=== PATIENT | female | born 1960 | race Caucasian/White ===

== ENCOUNTER 2023-08-09 04:09 | Day surgery (SDC) | payer OTHER ==
[2023-08-03 16:27] VITALS: BMI 26.3
[2023-08-09 08:51] VITALS: TEMP 97.8
[2023-08-09] MEDS ORDERED: LIDOCAINE VISCOUS 2% ORAL/TOP 15 ML UNIT-DOSE CUP ONE (09:59)
[2023-08-09 11:11] VITALS: RESP 18
[2023-08-09 11:14] VITALS: BP 135/66; PULSE 70
== END 2023-08-09 11:21 | disposition home or self-care (01) ==
LOC: JASU-ENDO 04:09
PROVIDERS: ATTEND Internal Medicine Gastroenterology
PROC: 0DJD8ZZ Inspection of Lower Intestinal Tract, Via Natural or Artificial Opening Endoscopic (ICD-10-PCS; principal; 2023-08-09 09:30)
DX: R10.9 Unspecified abdominal pain (principal); K63.89 Other specified diseases of intestine
CPT/HCPCS: 82962; 88305-TC; 88342-TC

== ENCOUNTER 2024-04-20 18:10 | Emergency (ER) | payer BC, OTHER ==
[2024-04-20] MEDS ORDERED: OSELTAMIVIR PHOSPHATE 75 MG CAPSULE ONE (18:25)
[2024-04-20] MEDS ORDERED: IBUPROFEN 600 MG TABLET (FP) PO ONE (18:25)
[2024-04-20 18:27] VITALS: BP 166/69; PULSE 115; RESP 18; TEMP 102.9; BMI 26.3
[2024-04-20] MEDS: IBUPROFEN 600 MG TABLET (FP) PO ONE (18:42)
[2024-04-20] MEDS: OSELTAMIVIR PHOSPHATE 75 MG CAPSULE PO ONE (18:42)
== END 2024-04-20 18:55 | disposition home or self-care (01) ==
LOC: FER 18:10
DX: R50.9 Fever, unspecified (principal); M79.10 Myalgia, unspecified site; R00.0 Tachycardia, unspecified; B34.9 Viral infection, unspecified; Z20.822 Contact with and (suspected) exposure to COVID-19
CPT/HCPCS: 0241U-QW; 99283-25